=== PATIENT | female | born 1955 | race Caucasian/White ===

== ENCOUNTER 2019-08-03 12:11 | Outpatient (CLI) | payer OTHER, MEDICARE, SELFPAY ==
[2019-08-03] VITALS (8 sets, daily range): BP systolic 99–141; BP diastolic 48–97; PULSE 89–104; RESP 16–18; TEMP 36.1; O2SAT 96–98
--- NOTE | 2019-08-03 12:18 | DI.RAD.S_ITS ---
PROCEDURE: PAIN L/S TRANSFORAMINAL INJECT INDICATIONS: SPINAL STENOSIS FINDINGS: Fluoroscopic spot filming was performed to verify placement of spinal needles at the L5-S1 level(s), as labeled on the films. Appropriate location(s) of the needle tip(s) was confirmed by injection of iodinated contrast. Dictated by: Lavon Preciado M.D. on 08/03/2019 at 15:36 Approved by: Lavon Preciado M.D. on 08/03/2019 at 15:37
[2019-08-03] MEDS: MIDAZOLAM 5 MG/5 ML VIAL IV (13:36)
[2019-08-03] MEDS: fentaNYL 100 MCG/2 ML INJ 50 MCG IV (13:37)
[2019-08-03] MEDS: IOPAMIDOL 15 ML VIAL 3 ML INJ (13:43)
[2019-08-03] MEDS: BUPIVACAINE 0.25% (PF) VIAL 2 ML INJ (13:43)
[2019-08-03] MEDS: BETAMETHASONE 30 MG/5 ML MDV 6 MG INJ (13:43)
[2019-08-03] MEDS: DEXAMETHASONE 10 MG/ML VIAL 20 MG INJ (13:44)
--- NOTE | 2019-08-03 13:49 | PC.NURSE ---
ASSISTING PT OFF TABLE AND TRANSPORTING TO POST PROC AREA IN STABLE CONDITION. PASSING RN CARE OF PT OFF TO KRISTIAN Potter RN.
--- NOTE | 2019-08-03 13:53 | PM.PROC.1 ---
Procedures Date/Time Date of procedure: 08/03/19 Time of procedure: 13:54 General Procedure description: PREOP DIAGNOSIS 1. FORMAINAL STENOSIS WITH LE SYMPTOMS POST OP DIAGNOSIS 1. FORMAINAL STENOSIS WITH LE SYMPTOMS PROCEDURES 1. FLUOROSCOPICALLY GUIDED CONTRAST CONTROLLED TRANSFORAMINAL EPIDURAL STEROID INJECTION - Left L5/S1 PHYSICIAN: Bhaskar Jett DO INDICATIONS: Saritha is referred by Dr. Dalton for treatment of Foraminal Stenosis with Left LE Symptoms FINDINGS Foraminal Nerve Root Compression secondary to disc disease and facet hypertrophy DESCRIPTION OF PROCEDURE: Following review of allergy and review of potential side effects and complications, including, but not necessarily limited to, infection, allergic reaction, local tissue breakdown, stroke, temporary or permanent nerve injury, paralysis, and possible , the patient indicated that the patient understood and agreed to proceed. An informed consent document was signed by the patient, witnessed by a nurse, and placed in the patient's chart. Additionally, other treatment options including medications, modalities, and physical therapy were reviewed with the patient. After review of previous anaesthesic history and IV conscious sedation the patient was deemed safe to proceed with todays procedure with IV conscious sedation as ASA class II designation. Safety time-out was performed to confirm patient ID, procedure to be performed and site of procedure. IV sedation was accomplished with a combination of 3mg of Versed and 50mcg of Fentanyl was administered by the RN after DO order, titrated to patient comfort during the course of the procedure while the patient remained responsive to all verbal commands In the prone position following sterile prep and drape of the lumbar region, the Left L5/S1 posterior neuroforamen was identified fluoroscopically. The skin was anesthetized via a 25-gauge 1.5-inch needle with 1% lidocaine solution. At this point, a 22-gauge 5-inch spinal needle was atraumatically introduced and advanced under fluoroscopic guidance through the posterior Left L5/S1 neuroforamen to approximately the anterior aspect of the canal. Depth was confirmed on lateral view. Following negative aspiration, injection of approximately 1.5 cc of Isovue 200 under live fluoroscopy in the AP view confirmed excellent flow along the nerve root, into the epidural space without vascular or intrathecal uptake observed Radiological data, including multiple fluoroscopic views of the lumbosacral spine, reveal a spinal needle at the Left L5/S1 posterior neuroforamen. Subsequent views show flow of contrast material flowing superiorly and inferiorly along the nerve root confirming epidural flow. Subsequently, a test dose of 1.5 cc of 1% lidocaine solution was administered and patient was observed for two minutes for signs or symptoms of complications, including abdominal pain, shortness of breath, bilateral upper or lower extremity weakness, nausea and vomiting, prior to steroid injection. At this point, a total of 3cc or 20mg of dexamethasone and 6mg of betamethasone was injected without incident. The procedure tolerated the procedure well without signs or symptoms of complications prior to transfer to the recovery area continued monitoring without incident. The patient was then transferred to the recovery area where they were observed for an appropriate time after the injection. The patient reported a VAS score of 7 prior to the procedure and a post-procedure VAS of 0. Total Fluoroscopy Time: 20.9 seconds Total Conscious Sedation Time: 24min POST OP INSTRUCTIONS The patient was provided a Pain Log to continue to record their response to the target-specific procedure prior to follow-up visit with their referring physician. Additionally, specific post-injection care instructions and a contact number to our office were provided if concerns arise regarding possible complications associated with the procedure are suspected. Bhaskar Jett DO Complications: none
--- NOTE | 2019-08-03 14:34 | PC.NURSE ---
Post procedure note: Patient arrived for post procedure monitoring at 1357. VSS, O2 sat WNL. tolerating po without nausea. Pain level 0/10. Daughter at chairside. Denies any unusual numbness or tingling to lower extremtities. Discharge to home, w/c to car at 1423.
== END 2019-08-03 14:23 ==
LOC: RAD 12:18
PROVIDERS: Family Provider Internal Medicine; PCP Internal Medicine; Visit Provider Physical Medicine & Rehabilitation
DX: M48.07 Spinal stenosis, lumbosacral region (principal); M51.17 Intervertebral disc disorders with radiculopathy, lumbosacral region
CPT/HCPCS: 64483; 99152; J0702; J1100; J2250; J3010

== ENCOUNTER → 2020-03-29 10:43 | Outpatient (CLI) | payer OTHER, MEDICARE, SELFPAY ==
--- NOTE | 2020-03-29 10:44 | DI.RAD.S_ITS ---
PROCEDURE: XR LUMBAR SPINE MIN 4V INDICATIONS: Left-sided low back pain status post fall TECHNIQUE: 5 total views of the lumbar spine were acquired, including bilateral oblique views. COMPARISON: [facility], ERIC, XR PELVIS WITH LATERAL HIP, 05/22/2019, 15:56. [facility], ERIC, XR L-SPINE 2-3V, 11/28/2018, 13:47. [facility], ERIC, MRI L-SPINE W/O CONTRAST, 04/22/2019, 9:43. FINDINGS: Bones: 5 nonrib-bearing vertebrae are present. Minimal levoconvex lumbar scoliotic curvature is seen. There is a 1/2 anterolisthesis seen at the L5-S1 level. There are associated bilateral pars defects. No vertebral body compression fractures. No suspicious bony lesions. There is at least moderate disc space narrowing seen at L5-S1. Minimal to mild disc space narrowing is seen at L3-L4. Degenerative changes can be seen of the hips, with moderate to severe superior joint space narrowing on the left, with associated subchondral sclerosis and irregularity. Soft tissues: Overlying bowel gas pattern is normal. No suspicious soft tissue calcifications. Atherosclerotic calcification is noted. IMPRESSION: Grade 1/2 anterolisthesis at L5-S1, with associated bilateral pars defects and associated focal degenerative change. Focal moderate to severe left hip degenerative change seen. Dictated by: Dominic Clemons M.D. on 03/29/2020 at 11:01 Approved by: Dominic Clemons M.D. on 03/29/2020 at 11:03
== END ==
PROVIDERS: Family Provider Internal Medicine; PCP Internal Medicine; Referring Provider Physical Medicine & Rehabilitation; Visit Provider Physical Medicine & Rehabilitation
DX: M54.5 Low back pain (principal); M25.552 Pain in left hip; M16.12 Unilateral primary osteoarthritis, left hip; M43.17 Spondylolisthesis, lumbosacral region; M47.817 Spondylosis without myelopathy or radiculopathy, lumbosacral region
CPT/HCPCS: 72110

== ENCOUNTER → 2020-05-22 09:21 | Outpatient (CLI) | payer OTHER, MEDICARE, SELFPAY ==
[2020-05-23 07:23] LABS: COVID19 Sendout Not Detected (Not Detect)
== END ==
PROVIDERS: Family Provider Internal Medicine; PCP Internal Medicine; Visit Provider Physician Assistant
DX: Z11.59 Encounter for screening for other viral diseases (principal)
CPT/HCPCS: 87635

== ENCOUNTER → 2020-06-03 14:31 | Outpatient (CLI) | payer OTHER, MEDICARE, SELFPAY ==
[2020-06-05 01:31] LABS: COVID19 Sendout Not Detected (Not Detect)
== END ==
PROVIDERS: Family Provider Internal Medicine; PCP Internal Medicine; Visit Provider Nurse Practitioner
DX: Z11.59 Encounter for screening for other viral diseases (principal)
CPT/HCPCS: 87635

== ENCOUNTER 2020-06-06 10:17 | Outpatient (CLI) | payer OTHER, MEDICARE, SELFPAY ==
[2020-06-06] VITALS (8 sets, daily range): BP systolic 124–158; BP diastolic 73–93; PULSE 77–89; RESP 8–25; TEMP 36.7; O2SAT 96–99
--- NOTE | 2020-06-06 10:23 | DI.RAD.S_ITS ---
PROCEDURE: PAIN L/SI FACET INJ/BLK 1STL INDICATIONS: Left L4-5 L5-S1 facet COMPARISON: None. FINDINGS: Fluoroscopic spot filming was performed to verify placement of spinal needles at the L4-L5, L5-S1 level(s), as labeled on the films. Appropriate location(s) of the needle tip(s) was confirmed by injection of iodinated contrast. Dictated by: Lavon Preciado M.D. on 06/06/2020 at 12:36 Approved by: Lavon Preciado M.D. on 06/06/2020 at 12:37
[2020-06-06] MEDS: fentaNYL 100 MCG/2 ML INJ 50 MCG IV (11:28)
[2020-06-06] MEDS: MIDAZOLAM 5 MG/5 ML VIAL IV (11:28)
[2020-06-06] MEDS: IOPAMIDOL 15 ML VIAL 3 ML INJ (11:29)
[2020-06-06] MEDS: BETAMETHASONE 30 MG/5 ML MDV 12 MG INJ (11:29)
[2020-06-06] MEDS: BUPIVACAINE 0.5% (PF) VIAL 2 ML INJ (11:29)
[2020-06-06] MEDS: LIDOCAINE 1% 20 ML 10 ML INJ (11:29)
--- NOTE | 2020-06-06 11:36 | P.PCN_ITS ---
Date/Time/Diagnoses Date of procedure: 06/06/20 Time of procedure: 11:36 Pre-procedure diagnosis: 1. FACET ARTHROPATHY, 2. AXIAL LBP, 3. MULTILEVEL DDD Post-procedure diagnosis: same Procedure Notes Procedure: 1. FLUOROSCOPICALLY GUIDED CONTRAST CONTROLLED FACET JOINT INJECTIONS LEFT L4/5, L5/S1 Indications: Saritha is referred by for treatment of Axial LBP Physician: Bhaskar Jett Total Fluoroscopy time (seconds): 6 Total sedation minutes: 6 Complications: none Procedure in detail & Post-procedure care: FINDINGS Multilevel Facet Arthropathy with Clinically significant axial LBP DESCRIPTION OF PROCEDURE Fluoroscopically guided, contrast-controlled left L4/5, L5/S1 facet joint injections. Following review of allergy and review of potential side effects and complications, including, but not necessarily limited to, infection, allergic reaction, local tissue breakdown, stroke, temporary or permanent nerve injury, paralysis, and possible , the patient indicated that the patient understood and agreed to proceed. An informed consent document was signed by the patient, witnessed by a nurse, and placed in the patient's chart. Additionally, other treatment options including medications, modalities, and physical therapy were reviewed with the patient. After review of previous anaesthesic history and IV conscious sedation the patient was deemed safe to proceed with today?s procedure with IV conscious sedation as ASA class II designation. Safety time-out was performed to confirm patient ID, procedure to be performed and site of procedure. IV sedation was accomplished with a combination of 3mg of Versed and 50mcg of Fentanylwas administered by the RN after DO order, titrated to patient comfort during the course of the procedure while the patient remained responsive to all verbal commands. In the prone position, following sterile prep and drape of the lumbar region, the posterior aspect of the left L4/5, L5/S1 facet joints were identified fluoroscopically. The skin was anesthetized via a 25-gauge 1.5-inch needle with 1% lidocaine solution into the corresponding facet joints. At this point, a 22- gauge 3.5-inch spinal needle was atraumatically introduced and advanced under fluoroscopic guidance into the corresponding facet joints. Following negative aspiration, injections of approximately 0.2-cc of Isovue 200 confirmed i nterarticular placement without vascular uptake. Radiological data, including multiple fluoroscopic views of the lumbosacral spine, reveal a spinal needle at the left L4/5, L5/S1 facet joints. Subsequent views show flow of contrast material both superiorly and inferiorly within the joint space without vascular or intrathecal uptake. At this point, a total of 0.5 cc including a mixture of 0.25cc Marcaine and 0.25cc betamethasone was injected without complication into each of the corresponding facet joints. The procedure tolerated the procedure well without signs or symptoms of complic ations prior to transfer to the recovery area continued monitoring without incident. The patient was then transferred to the recovery area where they were observed for an appropriate period of time after the injection. The patient reported a VAS score of 7 prior to the procedure and a post-procedure VAS of 0. POST OP INSTRUCTIONS The patient was provided a Pain Log to continue to record their response to the target-specific procedure prior to follow-up visit with their referring physician. Additionally, specific post-injection care instructions and a contact number to our office were provided if concerns arise regarding possible complications associated with the procedure are suspected.
== END 2020-06-06 11:58 | disposition home or self-care (01) ==
LOC: RAD 10:23
PROVIDERS: Family Provider Internal Medicine; PCP Internal Medicine; Referring Provider Internal Medicine; Visit Provider Physical Medicine & Rehabilitation
DX: M47.817 Spondylosis without myelopathy or radiculopathy, lumbosacral region (principal); M47.816 Spondylosis without myelopathy or radiculopathy, lumbar region; M54.5 Low back pain; M51.36 Other intervertebral disc degeneration, lumbar region; M51.37 Other intervertebral disc degeneration, lumbosacral region
CPT/HCPCS: 64493; 64494; 99152; J0702; J2250; J3010

== ENCOUNTER → 2020-07-31 15:11 | Outpatient (CLI) | payer OTHER, MEDICARE, SELFPAY ==
[2020-08-02 09:51] LABS: COVID19 Sendout Not Detected (Not Detect)
== END ==
PROVIDERS: Family Provider Internal Medicine; PCP Internal Medicine; Visit Provider Physician Assistant
DX: Z11.59 Encounter for screening for other viral diseases (principal)
CPT/HCPCS: 87635

== ENCOUNTER 2020-08-03 14:51 | Outpatient (CLI) | payer OTHER, MEDICARE, SELFPAY ==
[2020-08-03] VITALS (7 sets, daily range): BP systolic 122–168; BP diastolic 72–113; PULSE 92–101; RESP 12–28; TEMP 36.1; O2SAT 95–98
--- NOTE | 2020-08-03 14:54 | DI.RAD.S_ITS ---
PROCEDURE: PAIN L INTERLAMINAR/CAUDAL INJ INDICATIONS: SPONDYLOSIS COMPARISON: [facility], XA, PAIN L/SI FACET INJ/BLK 1STL, 06/06/2020, 11:28. [facility], CR, XR LUMBAR SPINE MIN 4V, 03/29/2020, 10:36. FINDINGS: Fluoroscopic spot filming was performed to verify placement of spinal needles at the L5-S1 level(s), as labeled on the films. Appropriate location(s) of the needle tip(s) was confirmed by injection of iodinated contrast. IMPRESSION: Fluoroscopy for pain management. Dictated by: Kaykay Childers M.D. on 08/03/2020 at 16:56 Approved by: Kaykay Childers M.D. on 08/03/2020 at 16:57
[2020-08-03] MEDS: fentaNYL 100 MCG/2 ML INJ 50 MCG IV (15:58)
[2020-08-03] MEDS: MIDAZOLAM 5 MG/5 ML VIAL IV (15:58)
[2020-08-03] MEDS: IOPAMIDOL 15 ML VIAL 3 ML INJ (16:06)
[2020-08-03] MEDS: DEXAMETHASONE 10 MG/ML VIAL 20 MG INJ (16:06)
[2020-08-03] MEDS: BUPIVACAINE 0.25% (PF) VIAL 2 ML INJ (16:06)
[2020-08-03] MEDS: BETAMETHASONE 30 MG/5 ML MDV 6 MG INJ (16:07)
--- NOTE | 2020-08-03 16:15 | PM.PROC.IR.1 ---
Date/Time/Diagnoses Date of procedure: 08/03/20 Time of procedure: 16:15 Pre-procedure diagnosis: 1. HNP WITH RADICULAR FEATURES, 2. MULTILEVEL CENTRAL STENOSIS, Post-procedure diagnosis: same Procedure Notes Procedure: 1. FLUOROSCOPICALLY GUIDED CONTRAST CONTROLLED INTERLAMINAR EPIDURAL STEROID INJECTION - L5/S1 Indications: Saritha is referred by Dr. Dalton for treatment of Bilateral Foraminal Stenosis L>R LE symptoms. Physician: Bhaskar Jett Total Fluoroscopy time (seconds): 6 Total sedation minutes: 10 Complications: none Procedure in detail & Post-procedure care: FINDINGS Multilevel Central Spinal Stenosis with Nerve Root Compression DESCRIPTION OF PROCEDURE Fluoroscopically guided, contrast-controlled L5/S1 translaminar epidural steroid injection. Following review of allergy and review of potential side effects and complications, including, but not necessarily limited to, infection, allergic reaction, local tissue breakdown, temporary as well as permanent nerve injury, paralysis, stroke and possible , the patient indicated that the patient understood and agreed to proceed. An informed consent document was signed by the patient, witnessed by a nurse, and placed in the patient's chart. Additionally, other treatment options including modalities, medications, and physical therapy were reviewed with the patient. After review of previous anaesthesic history and IV conscious sedation the patient was deemed safe to proceed with today?s procedure with IV conscious sedation as ASA class II designation. Safety time-out was performed to confirm patient ID, procedure to be performed and site of procedure. IV sedation was accomplished with a combination of 2mg of Versed and 50mcg of Fentanyl administered by the RN after DO order, titrated to patient comfort during the course of the procedure while the patient remained responsive to all verbal commands. In the prone position, following sterile prep and drape of the lumbar region, the L5/S1 translaminar space was identified fluoroscopically. The skin was anesthetized via a 25-gauge, 1.5-inch needle with 1% lidocaine solution. At this point, a 22-gauge short bevel spinal needle was atraumatically introduced and advanced under fluoroscopic guidance into the region of the L5/S1 translaminar space. Depth was confirmed on lateral view. Radiological data, including multiple fluoroscopic views of the lumbar spine, reveal a spinal needle at the L5/S1 translaminar space. Lateral views then show placement of the needle in the epidural space. Subsequent views show contrast material flowing superiorly and inferiorly in the epidural space. No vascular or intrathecal uptake is observed. At this point, using loss of resistance technique with saline and air, the epidural space was entered. This was confirmed following negative aspiration with injection of approximately 1.5cc of Isovue 200, showing excellent epidural flow without vascular or intrathecal uptake. At this point, 1 cc of 1% lidocaine solution combined with 3cc or 20mg of dexamethasone and 6mg of betamethasone was injected without incident. The patent tolerated the procedure without signs of symptoms of complications prior to transfer to the recovery area for further monitoring. The patient was then transferred to the recovery area where they were observed for an appropriate period of time after the injection. The patient reported a VAS score of 6 prior to the procedure and a post-procedure VAS of 0. POST OP INSTRUCTIONS The patient was provided a Pain Log to continue to record their response to the target-specific procedure prior to follow-up visit with their referring physician. Additionally, specific post-injection care instructions and a contact number to our office were provided if concerns arise regarding possible complications associated with the procedure are suspected.
== END 2020-08-03 16:42 | disposition home or self-care (01) ==
LOC: RAD 14:53
PROVIDERS: Family Provider Internal Medicine; PCP Internal Medicine; Referring Provider Physical Medicine & Rehabilitation; Visit Provider Physical Medicine & Rehabilitation
DX: M51.17 Intervertebral disc disorders with radiculopathy, lumbosacral region (principal); M48.061 Spinal stenosis, lumbar region without neurogenic claudication
CPT/HCPCS: 62323; 99152; J0702; J1100; J2250; J3010

== ENCOUNTER → 2020-09-01 13:34 | Outpatient (CLI) | payer OTHER, MEDICARE, SELFPAY ==
[2020-09-01 13:57] LABS: Bacteria Urine None Seen; RBC Urine None Seen (0-5/HPF)
[2020-09-01 14:16] LABS: Appearance Urine UA CLEAR; Bilirubin Urine UA NEGATIVE (NEGATIVE); Color Urine UA YELLOW; Glucose Urine UA NEGATIVE (Negative); Leukocyte Esterase Urine UA NEGATIVE (NEGATIVE); Nitrite Urine UA NEGATIVE (Negative); Protein Urine UA NEGATIVE (Negative); Urobilinogen Urine UA 0.2 E.U./dL (0.2)
[2020-09-01 14:24] LABS: Add Manual Diff / Slide Review NO; Basophils Absolute Auto 0 /uL (0-100); Basophils Percent Auto 0.4 % (0-2); Eosinophils Absolute Auto 200 /uL (0-450); Eosinophils Percent Auto 1.6 % (2-4); Hematocrit 43.8 % (36-46); Hemoglobin 14.4 g/dL (12.0-16.0); Lymphocytes Absolute Auto 2600 /uL (1100-4500); Lymphocytes Percent Auto 24.5 % (25-40); Mean Corpuscular HGB Conc 32.9 % (30-36); Mean Corpuscular Hemoglobin 30.4 PG (26-34); Mean Corpuscular Volume 92.5 fL (80-100); Monocytes Absolute Auto 900 /uL (0-900); Monocytes Percent Auto 8.2 % (3-14); Neutrophils Absolute Auto 7000 /uL (1500-7000); Neutrophils Percent Auto 65.3 % (50-75); Platelet Count 304 X10^3/uL (150-400); Red Blood Cell Count 4.73 X10^6/uL (4.0-5.2); Red Cell Distribution Width 14.1 % (11.6-14.8); White Blood Cell Count 10.7 X10^3/uL (4.5-11.0)
[2020-09-01 14:26] LABS: Culture Indicated Urine Cult Not Indicated
[2020-09-01 14:37] LABS: Blood Urea Nitrogen 20 mg/dL (7-17); Calcium 9.9 mg/dL (8.4-10.2); Carbon Dioxide 27 mmol/L (22-32); Chloride 104 mmol/L (98-107); Estimated Glomerular Filt Rate > 60.0 mL/min (>60); Glucose 99 mg/dL (80-110); HEMOLYSIS < 15 (0-50); Potassium 5.2 mmol/L (3.4-5.1); Sodium 137 mmol/L (137-145)
[2020-09-01 14:41] LABS: Ketones Urine UA NEGATIVE (NEGATIVE); Occult Blood Urine UA Negative (Negative)
[2020-09-01 14:42] LABS: Amorphous Sediment Urine 1+; Mucus Urine 3+ (Negative)
[2020-09-01 14:43] LABS: WBC Urine 5-10/HPF (0-5/HPF)
== END ==
PROVIDERS: Family Provider Internal Medicine; PCP Internal Medicine; Referring Provider Orthopaedic Surgery
DX: Z01.812 Encounter for preprocedural laboratory examination (principal); Z01.818 Encounter for other preprocedural examination
CPT/HCPCS: 36415; 80048; 81001; 85025; 93005

== ENCOUNTER → 2020-09-25 13:19 | Outpatient (CLI) | payer OTHER, MEDICARE, SELFPAY ==
[2020-09-25 14:03] LABS: COVID19 -Nasal RAPID Negative (Negative)
== END ==
PROVIDERS: Family Provider Internal Medicine; PCP Internal Medicine; Visit Provider Physician Assistant
DX: Z01.812 Encounter for preprocedural laboratory examination (principal); Z20.828 Contact with and (suspected) exposure to other viral communicable diseases
CPT/HCPCS: 87635; C9803

== ENCOUNTER 2020-09-27 07:24 | Day surgery (SDC) | payer OTHER, MEDICARE, SELFPAY ==
[2020-09-20 13:54] VITALS: BMI 31.2
[2020-09-27] VITALS (16 sets, daily range): BP systolic 103–149; BP diastolic 51–84; PULSE 67–94; RESP 10–18; TEMP 35.6–36.4; O2SAT 92–100; BMI 31.2
--- NOTE | 2020-09-27 06:00 | DI.RAD.S_ITS ---
PROCEDURE: XR PELVIS 1-2V INDICATIONS: ASHLEY TECHNIQUE: 2 view(s) of the pelvis acquired. COMPARISON: [facility], CR, XR PELVIS WITH LATERAL HIP LEFT, 08/17/2020, 13:49. [facility], CR, XR PELVIS 1 OR 2VW, 09/02/2016, 13:13. FINDINGS: Bones: No fractures or dislocations. No suspicious bony lesions. Expected postoperative appearance after left total hip arthroplasty, showing no evidence of device loosening or disruption Soft tissues: Visualized bowel gas pattern is normal. No suspicious soft tissue calcifications. IMPRESSION: Normal postoperative alignment after left total hip arthroplasty. Dictated by: Garth Mcneill M.D. on 09/27/2020 at 10:56 Approved by: Garth Mcneill M.D. on 09/27/2020 at 10:57
[2020-09-27] MEDS: ACETAMINOPHEN 325 MG TABLET 975 MG PO (07:51)
[2020-09-27] MEDS: MELOXICAM 7.5 MG TABLET 15 MG PO (07:51)
[2020-09-27] MEDS: ALBUTEROL 2.5 MG/3 ML NEB (ADULT) INH (08:12)
--- NOTE | 2020-09-27 08:12 | PM.PREOP ---
Pre-operative Note COVID-19 COVID-19 status: Negative Result date/Date tested (Pos, Neg/Pending): 09/25/20 Interval Note History & Physical reviewed/Exam performed by Physician: Yes Changes to H&P: No
[2020-09-27] MEDS: CEFAZOLIN 2 GM/100 ML FROZ.PIGGY IV ×2 (09:04→17:44)
--- NOTE | 2020-09-27 09:27 | SUR.OPER ---
Lateral on padded OR bed. Gel axillary roll. Arms secured on padded armboard with pillow supporting top arm. Padded hip positioner braces x4 - anterior and posterior chest and pelvis. Additional gel pad used anterior pelvis. Gel pad under bottom leg from knee to foot and secured with tape over sheet.
[2020-09-27] MEDS: TRANEXAMIC ACID 1,000 MG VIAL 2000 MG INJ ×2 (09:33→10:11)
[2020-09-27] MEDS: MORPHINE 4 MG/ML INJ INJ (09:34)
[2020-09-27] MEDS: ROPIVACAINE 0.5% PF 5 MG/ML 20ML VIAL 60 ML INJ (09:34)
[2020-09-27] MEDS: KETOROLAC 30 MG/ML VIAL IV (09:34)
--- NOTE | 2020-09-27 10:45 | PM.OP.1 ---
Operative Date/Time/Diagnoses Date of procedure: 09/27/20 Time of procedure: 10:46 Pre-op diagnosis: Left hip degenerative joint disease Post-op diagnosis: same Procedure & Clinicians Procedure: Left total hip arthroplasty (CPT code 77402 with personal injury legal assistant) Same procedure as scheduled: Yes Indications: Patient is an 65-year-old female with severe left hip DJD. The patient has pain with activities and at rest, limited ambulation and activity tolerance, difficulties with ADLs, and failure of conservative treatment. We have discussed the nature of condition, treatment options, risks and benefits, and patient elects to proceed with total hip arthroplasty and gives informed consent. Surgeon: Jaswinder Gray 5Th Grade Teacher: Maurilio Kebede Anesthesia Type: General and Spinal Operative Notes Closure Type: primary Specimen(s): none sent Prosthetic devices, grafts, tissues, transplants, or devices: Acetabulum: Negron [employer] Nephew R3 acetabular component size 52 mm Femoral component: Negr[employer]hew Anthology stem size 6 with standard offset Femoral head: 36 mm + 0 cobalt chrome Estimated Blood Loss (mL): 100 Blood products transfused: none Procedure in detail: After satisfaction induction of anesthetic, and administration of IV antibiotics, the patient was positioned in the lateral decubitus position with all bony prominences well padded and pelvic position secured using a hip fiber optic central office installer positioning device. Left hip and lower extremity prepped and draped in the usual sterile fashion, 1st dose of intravenous tranexamic acid was administered, then a longitudinal incision was created centered over the greater trochanter and carried sharply through the skin and subcutaneous tissues down to the fascia patsy which was divided longitudinally and retracted with a Charnley retractor. External rotators visualize, cut, tagged, and retracted posteriorly, then the capsule was cut in a T-type fashion with the corners tagged and retracted. Hip was dislocated and femoral neck cut made according to preoperative templating. Acetabular retractors then placed, and the acetabular labrum and osteophytes were excised. The acetabulum was then sequentially reamed to 51 mm with an excellent circumferential ream and fit with the trial. The trial component was removed and a permanent size 52 mm Negron and Nephew R3 acetabular component was selected, positioned, and impacted with satisfactory position and fixation achieved. Permanent liner was then inserted with the elevated lip directed posteriorly. Soft tissue then removed off the lateral femoral neck in the lateral neck was entered using a box osteotome. T-handled reamers placed down the canal followed by sequential broaching to 6 with the final broach left in place for trial reduction which demonstrated excellent leg length, range of motion, and stability characteristics with a 36 mm +0 trial ball. The trial and broach were removed, and a permanent size 6 Negron [employer] Nephew Anthology stem was selected and inserted with excellent position and fixation achieved. Another trial reduction yielded the above characteristics so the trial ball was exchanged for a permanent 36 mm +0 cobalt chrome ball. The hip was irrigated and reduced and excellent leg length range of motion and stability characteristics were achieved and maintained. Periarticular tissues were infiltrated with ropivacaine, morphine, and Toradol. The hip was copiously irrigated, and the capsule repaired with #2 Ethibond, and the piriformis was repaired back to the greater trochanter with the same. Fascia patsy closed with interrupted #1 Ethibond sutures, and the subcutaneous tissues were closed in 2 layers of 0 Vicryl and 2 0 Vicryl. Skin was closed with ZipLine skin closure and sterile dressings applied. Second dose of tranexamic acid was administered intravenously, and the anesthetic was terminated. Complications: none Post-operative Condition: stable Disposition: PACU Plan for aftercare: Patient will be admitted to the acute care [facility], and anticipate discharge on postop day 1 with follow-up in office in 10-14 days. Outpatient physical therapy will be arranged and patient will continue to observe posterior hip precautions. Patient will continue use of postoperative aspirin for DVT prophylaxis postop.
[2020-09-27] MEDS: LACTATED RINGERS 1,000 ML 125 ML IV ×2 (12:22→21:18)
--- NOTE | 2020-09-27 12:37 | PC.NURSE ---
Pt to rm 204 via bed from PACU. Pt awake alert and oriented x 3, denies pain, nausea, or shortness of breath. Pt oriented to room, call light, bed controls, and tv controls. Pt is aware that the bed alarm is on and she must call for assistance as needed and not get up without help. Admission has been completed and Pt is eating lunch.
[2020-09-27] MEDS: ACETAMINOPHEN 325 MG TABLET 650 MG PO ×2 (14:21→21:19)
--- NOTE | 2020-09-27 15:50 | PT.IIE ---
Current Diagnoses Unilateral primary osteoarthritis, left hip (09/27/20) Surgery Performed Operation Date: 09/27/20 08:45 Actual Procedures p Total Hip Arthroplasty(Left) - Jaswinder Gray MD Surgical History (Last Updated 09/20/20 @ 14:18 by Unique Romeo RN) History of nasal surgery History of surgery Hx of dilation and curettage Hx of tubal ligation Medical History (Last Updated 09/20/20 @ 14:49 by Unique Romeo RN) Anxiety Asthma COPD (chronic obstructive pulmonary disease) Degenerative joint disease (DJD) of hip Fibromyalgia Heartburn Neuropathy Postnasal drip PTSD (post-traumatic stress disorder) RLS (restless legs syndrome) Spondylolisthesis at L5-S1 level Physical Therapy Inpatient Evaluation/Re-Eval M1 PT/OT-IP Prior Functional Status Start: 09/27/20 13:53 Freq: NEEDED Status: Active Protocol: Document 09/27/20 15:50 DE (Rec: 09/27/20 16:30 DE [id number]) Medical Review Prior Functional Status Medical History Reviewed Yes Communication WNL. No deficits noted. Able to make needs known. Mobility and Gait IND for all mobility and amb without AD at baseline. Pt was unable to amb more than 3 blocks. Activities of Daily Living and IADL's IND for all ADLs and IADLs at baseline. Social History Household Members spouse Living Arrangements House Number of Floors (Floors) Two Floors Number of Stairs To Enter/Railing? 5 MALINI with B wide railing through front foor. 4 MALINI with R railing going up through back door. Pt prefers the back entrance. 3 steps inside to kitchen with R railing going up. There are more steps to go upstairs but pt can stay on main floor. Home Environment Standard Height Toilet,Tub/ Shower Home Equipment Front Wheel Walker,Straight Cane,Raised Toilet Seat w/ Armrests,Shower Seat with Backrest,Grab Bars In Shower Employment Status Retired Additional Social History Comment Pt lives with , who works full-time. One of her daughter will stay with her and Friday. Another daughter will stay with her next Friday and Friday. M2 PT-IP Current Condition Start: 09/27/20 13:53 Freq: NEEDED Status: Active Protocol: Document 09/27/20 15:50 DE (Rec: 09/27/20 16:30 DE [id number]) Physical Therapy Current Condition Current Condition Evaluation Date 09/27/20 Treatment Diagnosis L ASHLEY; Difficulty in walking Onset Date 09/27/20 Precautions Posterior Hip Precautions No Hip Flexion > 90 degrees,No Hip Internal Rotation,No Hip Adduction Weight Bearing Status Weight Bearing Status Weight Bear as Tolerated M3 PT-IP Subjective Start: 09/27/20 13:53 Freq: NEEDED Status: Active Protocol: Document 09/27/20 15:50 DE (Rec: 09/27/20 16:30 DE [id number]) Subjective Physical Therapy Visit Type Type Initial Evaluation Visit Start Time 14:14 Visit Stop Time 15:00 Total Visit Minutes 46 Notes SPT Paco led session under direct supervision of PT Baljit. Number of PHOTOGRAPHY SPOTTER Visits 0 Physical Therapy Visit Comments Patient Comments Pt is agreeable to do PT. Therapy Pain Assessment Pain When Pain Assessed During Weight Bearing Pain Present Pain Present Pain Reported Location Left Hip Intensity 3 Scale Used Numeric (0 - 10) Description Aching Pain Behaviors Calling Out Pain Management Techniques Timing of Activity with Medications M4 PT-IP Mobility and Gait Start: 09/27/20 13:53 Freq: NEEDED Status: Active Protocol: Document 09/27/20 15:50 DE (Rec: 09/27/20 16:30 DE [id number]) PT-Bed Mobility Assessment Supine to Sit Supine to Sit Standby Assistance,Head of Bed Elevated Scooting Scooting to Edge of Bed Standby Assistance PT-Transfer Assessment Sit to and From Stand Sit to and from Stand Contact Guard Assistance,Use of Upper Extremities Equipment Transfer Assistive Device Gait Belt,Front Wheeled Walker Orthotic/Prosthetic Devices or Brace: No Transfers Transfer Destination Chair Transfer Technique Amb with FWW Transfer Ability Level of Assist Contact Guard Assistance,Use of Upper Extremities Comments Mobility Comments Pt was inclined in bed upon arrival. Pt completed supine to sit at L EOB with elevated HOB, SBA, and cues to not bend over. BP on EOB was 112/67. Pt then performed sit to stand with FWW CGA. Pt was able to tolerate WB on LLE well. Pt then amb ~120 ft in the hallway and back to the room with FWW CGA. Pt demonstrated step-though gait pattern with decreased stride length, decreased feet clearance, and decreased gait speed. Cues were provided to take smaller steps when turning in order to prevent hip internal rotation . Pt tolerated walking well. Pt amb back to the room and sat down in the chair with FWW CGA. Pt does has mild difficulty recalling her post op precautions and she was somewhat anxious during the session. Call light placed within reach. Gait Assessment Gait Gait Assistance Required: Contact Guard Assist Distance (Feet) 120 Able to Maintain Weight Bearing Status Yes During Gait Assistive Devices Assistive Device Gait Belt,Front Wheeled Walker Orthotic/Prosthetic Devices or Brace: No Gait Deviations General Gait Pattern Antalgic,Decreased Stride Length,Decreased Feet Clearance Factors Limiting Gait Function Factors Limiting Gait Function Decreased Activity Tolerance, Decreased Sensation,Decreased Strength,Limited Range of Motion,Pain,Poor Balance,Poor Safety Awareness Comments Gait Comments See mobility comments. Stair Climbing Assessment Comments Stair Climbing Comments Not assessed. PT-Balance Assessment Sitting Balance and Reactions Static Sitting Balance Ability Normal Dynamic Sitting Balance Ability Normal Standing Balance and Reactions Static Standing Balance Ability Good Dynamic Standing Balance Ability Good Device Used FWW M5 PT-IP Objective Assessments Start: 09/27/20 13:53 Freq: NEEDED Status: Active Protocol: Document 09/27/20 15:50 DE (Rec: 09/27/20 16:30 DE [id number]) Orientation Orientation/Cognition Level of Alertness Alert Orientation Name,Age,Birthday,Month,Date, Year,Day of Week,Place, Situation Language Function Ability No Deficits Noted Safety Awareness Understands Safety Issues Memory Description No Deficits Noted Comments Pt demonstrated some forgetfulness throughout session. Gross Range of Motion Lower Extremity ROM Assessment Left Impaired Strength Lower Extremity Strength Assessment Left Impaired Comments Strength Comments R hip and knee 5/5 grossly L - did not test hip, knee 4/5 grossly Coordination Assessment Gross Coordination Gross Coordination WNL Sensation Assessment Sensation Gross Sensation Right LE Impaired,Left LE Impaired Light Touch Impaired Comments Sensation Comments Pt is able to feel light touch but reports she has peripheral neuropathy. Muscle Tone Muscle Tone WNL Yes M6 PT-IP Treatment Start: 09/27/20 13:53 Freq: NEEDED Status: Active Protocol: Document 09/27/20 15:50 DE (Rec: 09/27/20 16:30 DE [id number]) Physical Therapy Treatment Education Education Provided Precautions,Weight Bearing Status,Post-Op Packet,Safety M7 PT-IP Assessment and Plan Start: 09/27/20 13:53 Freq: NEEDED Status: Active Protocol: Document 09/27/20 15:50 DE (Rec: 09/27/20 16:30 DE [id number]) PT Summary Assessment and Plan Potential Rehabilitation Potential Good Status of Condition at Evaluation Evolving Summary Impairments Pain,ROM,Strength,Balance,Bed Mobility,Transfers,Gait, Activity Tolerance Assessment Summary Saritha is a 65 yo female POD0 s/p L ASHLEY. At baseline, pt was IND for all mobility, amb, and ADLs without AD. Pt was unable to amb more than 3 blocks d/t increased pain. On evaluation, pt requires CGA- SBA for all mobility, transfers, and amb with use of FWW. Pt amb ~120 ft with FWW CGA. Pt is not safe yet to d/c home at this time. Pt will need to improve activity tolerance and perform 4 MALINI with R railing going up. PT anticipates pt will be safe to d/c home with assistance once medically cleared. Pt will benefit from outpatient PT to improve hip ROM and strength. Goals Bed Mobility Goal Standby Assistance Transfer Goal Standby Assistance Gait Goal Standby Assistance Gait Distance 200 Other Goals Pt will perform 4 steps with R railing going up and SBA. Days to Meet Goals 3 Frequency of Treatment Frequency Of Treatment Twice a Day Treatment Plan Physical Therapy Treatment Plan Bed Mobility Training,Transfer Training,Gait Training, Therapeutic Exercise,Balance Retraining,Post Op Education, Discharge Planning,Hot or Cold Pack,Neuromuscular Re-ed Other Recommendations and Next Treatment cont mobility as tiera Focus 4 steps with R railing Recommendations To Nursing Amount of Assist Needed 1 Person Assist Discharge Recommendations PT Discharge Recommendations Home with Assistance, Outpatient PT Transportation Needs at Discharge Private Vehicle This session was led by SPT Paco Yang and supervised by me PT Carlie Villatoro. I personally reviewed and approved this eval noted as well.
[2020-09-27] MEDS: hydrOXYzine pamoate 25 MG CAPSULE PO (17:44)
[2020-09-27] MEDS: ASPIRIN EC 81 MG TABLET PO (21:18)
[2020-09-27] MEDS: DOCUSATE 100 MG CAPSULE PO (21:19)
[2020-09-27] MEDS: FLUTICASONE/SALMETEROL 500/50 60 PUFF DISKUS INH (21:23)
[2020-09-27] MEDS: HYDROCODONE/ACET 5/325 TABLET 1 TAB PO (22:45)
[2020-09-28] MEDS: hydrOXYzine pamoate 25 MG CAPSULE PO (03:19)
[2020-09-28 03:32] VITALS: BP 112/65; PULSE 79; RESP 16; TEMP 36.2; O2SAT 93
[2020-09-28] MEDS: LACTATED RINGERS 1,000 ML 125 ML IV (05:23)
[2020-09-28] MEDS: OXYCODONE IR 5 MG TABLET PO ×2 (05:28→09:41)
[2020-09-28 06:04] LABS: Hematocrit 34.1 % (36-46)
[2020-09-28] MEDS: TIOTROPIUM BROMIDE 18 MCG INHALER INH (07:31)
[2020-09-28 07:33] VITALS: PULSE 88; RESP 18; O2SAT 97
[2020-09-28] MEDS: FLUTICASONE/SALMETEROL 500/50 60 PUFF DISKUS INH (07:36)
[2020-09-28 08:00] VITALS: BP 140/84; PULSE 83; RESP 16; TEMP 36.4; O2SAT 94
[2020-09-28] MEDS: DOCUSATE 100 MG CAPSULE PO (08:35)
[2020-09-28] MEDS: ASPIRIN EC 81 MG TABLET PO (08:35)
[2020-09-28] MEDS: ACETAMINOPHEN 325 MG TABLET 650 MG PO (08:35)
--- NOTE | 2020-09-28 10:32 | PM.PN.1 ---
Subjective Subjective Date Patient Seen: 09/28/20 Interval history: Patient is POD#1 s/p left posterior ASHLEY with Dr. Gray. Pain has been well controlled. She has mobilized with PT. No nausea or vomiting. Tolerating a diet. Voiding appropriately. No complaints. Exam Vital Signs (past 8 hours): - 09/28/20 03:32 09/28/20 07:33 09/28/20 08:00 Temperature 97.1 F L 97.6 F Pulse Rate 79 88 83 Respiratory Rate 16 18 16 Blood Pressure 112/65 140/84 Pulse Oximetry 93 97 94 Oxygen Delivery Method Room Air Oxygen Flow Rate 0 Narrative Exam Narrative: 65 year old female resting in bed alert and oriented in no acute distress. Dressing in place is clean and dry, peeling at edges. Active dorsiflexion and plantar flexion of the ankle. Calves are soft nontender. Palpable pedal pulse. Objective Labs Result Diagrams: 09/28/20 05:35 Labs: Laboratory Results - last 24 hr 09/28/20 05:35 Hgb 11.0 L Hct 34.1 L PFSH Medical History Anxiety Asthma COPD (chronic obstructive pulmonary disease) Degenerative joint disease (DJD) of hip Fibromyalgia Heartburn Neuropathy Postnasal drip PTSD (post-traumatic stress disorder) RLS (restless legs syndrome) Spondylolisthesis at L5-S1 level Surgical History (Updated 09/20/20 @ 14:18 by Unique Romeo RN) History of nasal surgery History of surgery Hx of dilation and curettage Hx of tubal ligation Family History Brother Leukemia Mother Heart disease Father Heart disease Brother Throat cancer Social History (Updated 10/07/19 @ 13:45 by Christin Schmitz) household members: spouse Smoking Status: Current every day smoker alcohol intake: former Assessment & Plan Assessment & Plan narrative: -Postop right ASHLEY. Doing well. -Mobilize with PT today. Posterior hip precautions. -Continue ASA 81mg BID for DVT prophylaxis. Prescriptions for oxycodone and vistaril provided. -Discharge to home later today. Daughter and available as caretakers. -Follow up as scheduled in 2 weeks. Quality VTE Deep Vein Thrombosis/Pulmonary Embolism Present on Admission: No
--- NOTE | 2020-09-28 10:40 | PT.IPTN ---
Current Diagnoses Unilateral primary osteoarthritis, left hip (09/27/20) Surgery Performed Operation Date: 09/27/20 08:45 Actual Procedures p Total Hip Arthroplasty(Left) - Jaswinder Gray MD Physical Therapy Treatment Note M2 PT-IP Current Condition Start: 09/27/20 13:53 Freq: NEEDED Status: Discharge Protocol: Document 09/28/20 10:40 DLM (Rec: 09/28/20 11:52 DLM [id number]) Physical Therapy Current Condition Current Condition Evaluation Date 09/27/20 Treatment Diagnosis L ASHLEY; Difficulty in walking Onset Date 09/27/20 Precautions Posterior Hip Precautions No Hip Flexion > 90 degrees,No Hip Internal Rotation,No Hip Adduction Weight Bearing Status Weight Bearing Status Weight Bear as Tolerated M3 PT-IP Subjective Start: 09/27/20 13:53 Freq: NEEDED Status: Discharge Protocol: Document 09/28/20 10:40 DLM (Rec: 09/28/20 11:52 DLM [id number]) Subjective Physical Therapy Visit Type Type Treatment Note Visit Start Time 10:00 Visit Stop Time 10:40 Total Visit Minutes 40 Number of FOREST PATHOLOGY TEACHER Visits 0 Physical Therapy Visit Comments Patient Comments she is worried about being able to follow her precautions Patient Goals go home with Spouse Therapy Pain Assessment Pain When Pain Assessed After Treatment Pain Present Pain Present Pain Reported Location Left Hip Intensity 7 Scale Used Numeric (0 - 10) Description Aching Pain Behaviors Guarding Pain Management Techniques Re-positioning,Timing of Activity with Medications M4 PT-IP Mobility and Gait Start: 09/27/20 13:53 Freq: NEEDED Status: Discharge Protocol: Document 09/28/20 10:40 DLM (Rec: 09/28/20 11:52 DLM [id number]) PT-Bed Mobility Assessment Supine to Sit Supine to Sit Standby Assistance Sit to Supine Sit to Supine Standby Assistance Scooting Scooting to Edge of Bed Standby Assistance Scooting Up and Down in Bed Independent PT-Transfer Assessment Sit to and From Stand Sit to and from Stand Standby Assistance,Use of Upper Extremities Equipment Transfer Assistive Device Gait Belt,Front Wheeled Walker Transfers Transfer Destination Bed,Chair,Toilet Transfer Technique Stand Step Pivot Transfer Ability Level of Assist Standby Assistance,Use of Upper Extremities Comments Mobility Comments she needs frequent verbal and physical cuing to use her hip precautions during functional mobility, she especially has difficulty with limiting forward bend during sit-stand and scooting in sitting, during transfers she needs reminders to avoid twisting left LE into IR Gait Assessment Gait Gait Assistance Required: Standby Assistance Distance (Feet) 300 Able to Maintain Weight Bearing Status Yes During Gait Assistive Devices Assistive Device Gait Belt,Front Wheeled Walker Gait Deviations General Gait Pattern Antalgic Factors Limiting Gait Function Factors Limiting Gait Function Decreased Activity Tolerance, Pain,Poor Safety Awareness Comments Gait Comments she needs verbal reminders to slow down, adjusted home FWW and cane Stair Climbing Assessment Evaluation Level of Assist On Stairs Standby Assistance Devices Stair Climbing Assistive Devices Straight Cane,Right Railing Technique/Endurance Stair Climbing Direction Ascend and Descend Stair Climbing Technique Step to Step Number of Steps Climbed 3 Stair Climbing Set # Repetitions (reps) 1 Comments Stair Climbing Comments needs verbal cuing for sequencing PT-Balance Assessment Sitting Balance and Reactions Static Sitting Balance Ability Normal Dynamic Sitting Balance Ability Normal Standing Balance and Reactions Static Standing Balance Ability Good Dynamic Standing Balance Ability Good Device Used fWW M5 PT-IP Objective Assessments Start: 09/27/20 13:53 Freq: NEEDED Status: Discharge Protocol: Document 09/27/20 15:50 DE (Rec: 09/27/20 16:30 DE [id number]) Orientation Orientation/Cognition Level of Alertness Alert Orientation Name,Age,Birthday,Month,Date, Year,Day of Week,Place, Situation Language Function Ability No Deficits Noted Safety Awareness Understands Safety Issues Memory Description No Deficits Noted Comments Pt demonstrated some forgetfulness throughout session. Gross Range of Motion Lower Extremity ROM Assessment Left Impaired Strength Lower Extremity Strength Assessment Left Impaired Comments Strength Comments R hip and knee 5/5 grossly L - did not test hip, knee 4/5 grossly Coordination Assessment Gross Coordination Gross Coordination WNL Sensation Assessment Sensation Gross Sensation Right LE Impaired,Left LE Impaired Light Touch Impaired Comments Sensation Comments Pt is able to feel light touch but reports she has peripheral neuropathy. Muscle Tone Muscle Tone WNL Yes M6 PT-IP Treatment Start: 09/27/20 13:53 Freq: NEEDED Status: Discharge Protocol: Document 09/28/20 10:40 DLM (Rec: 09/28/20 11:52 DLM [id number]) Physical Therapy Treatment Exercises Exercises Ankle Pumps,Gluteal Sets,Quad Sets,Heel Slides Education Education Provided Precautions,Weight Bearing Status,Post-Op Packet,Safety Equipment Issued Equipment Type and Company she has a home FWW and cane that is in her hospital room Other Treatments Other Treatment Performed her Spouse arrived at end of visit and reviewed hip precaution information with him M7 PT-IP Assessment and Plan Start: 09/27/20 13:53 Freq: NEEDED Status: Discharge Protocol: Document 09/28/20 10:40 DLM (Rec: 09/28/20 11:52 DLM [id number]) PT Summary Assessment and Plan Summary Impairments Pain,ROM,Strength,Balance,Bed Mobility,Transfers,Gait, Activity Tolerance Progress Towards Goals Progressing Toward Goals,Safe For Discharge Assessment Summary She is progressing well. She has a supportive Spouse and Daughters to help at home. She will need family to help reinforce her hip precautions during functional mobility. She appears safe to discharge with family support. She has home equipment. Goals Bed Mobility Goal Standby Assistance Transfer Goal Standby Assistance Gait Goal Standby Assistance Gait Distance 200 Other Goals Pt will perform 4 steps with R railing going up and SBA. Days to Meet Goals 3 Frequency of Treatment Frequency Of Treatment Twice a Day Treatment Plan Physical Therapy Treatment Plan Bed Mobility Training,Transfer Training,Gait Training, Therapeutic Exercise,Balance Retraining,Post Op Education, Discharge Planning,Hot or Cold Pack,Neuromuscular Re-ed Recommendations To Nursing Amount of Assist Needed 1 Person Assist Discharge Recommendations PT Discharge Recommendations Home with Assistance, Outpatient PT Transportation Needs at Discharge Private Vehicle
--- NOTE | 2020-09-28 11:04 | PC.NURSE ---
Pt worked with PT on stairs, cleared for d/c. Pt's present in room, discharge instructions given to pt and , discussed- follow-up appts, medications and safety, s/s stroke, incision dressing care, posterior hip replacement precautions. Pt dressed with assistance of DISTRIBUTOR SALES CONSULTANT. Left via w/c with , will all belongings, in POV.
--- NOTE | 2020-09-28 11:15 | CM.DANOTE ---
Discharge Planning/Care Management DCP: assessment: case received, EMR reviewed. Discussed in Team Rounds. PT noted that pt needed some work on step training today before she would be ready for d/c. Went to room now to meet with pt and follow for any d/c needs. She has been cleared for d/c by PT and ortho PA Cris and had just left for home in company of family. Pt's and daughter were available for supportive care. Surgery: scheduled: L ASHLEY/posterior Surgeon: Dr. Gray. Payer: Count Includes [facility] and Medicare Followup with Dr. Gray was planned. CM Discharge Assessment Start: 09/28/20 11:14 Freq: Status: Active Protocol: Document 09/28/20 11:15 ITV (Rec: 09/28/20 11:15 ITV [id number]) Discharge Planning Assessment Advance Directives? No History Provided By Patient Prior Living Arrangements House Household Members spouse Is patient alert and oriented? Yes Discharge Plan Home Pre-Anesthesia Assessment Start: 09/20/20 13:54 Freq: Status: Discharge Protocol: Document 09/20/20 13:54 CAB (Rec: 09/20/20 14:48 CAB [id number]) Pre-Anesthesia Assessment Preferred Name Diane Patient Information Reviewed Via Phone Assessment Assessment Completed With Patient Diagnostic Results BMP/CMP,CBC,EKG,Urinalysis Comment Labs/EKG @ [facility], COVID screen @ [facility] 09/25/20 Primary Care Provider Cierra Dalton Seen Specialist in Last 12 Months Yes Specialist Seen Orthopedist Primary Language Albanian Income Tax Preparer Required No Height 165.1 cm Weight 85.275 kg Body Mass Index (BMI) 31.2 Hearing Ability Normal Visual Assist Glasses Dentition Type Partial- Upper Barriers to Learning None,Memory Hx Anesthesia Reactions No Hx Family Anesthesia Reaction No Hx Malignant Hyperthermia No Hx Blood Transfusions No Anesthesia Review Requested No alcohol intake former Smoking Status Current every day smoker Tobacco type cigarettes Smoking cigarettes per day 5 Substance Use Type does not use Pain Present Pain Reported Musculoskeletal Symptoms Abnormal Gait,Back Pain, Difficulty Walking,Joint Pain, Neck Pain History of Falling (Recent or History of Yes ) Patient is completely paralyzed or No completely immobile Prosthesis or Orthotic Device Cane Mental Status Oriented to own ability Is patient on oxygen? No Does patient have NYE/SOB Yes: r/t COPD asthma, smoking Hx Sleep Apnea No Currently Taking a Beta Carli No Can You Climb a Flight of Stairs Without No SOB Hx Chest Pain No Hx SOB Yes: r/t COPD asthma, smoking Hx Syncope or Dizziness No Anti-Coagulant Therapy No Has a Fishery Biologist No Cardiac Testing No Hx Pacemaker/ICD No Pacemaker Rep Required? No Cardiac Clearance Received Not Applicable Diet Type At Home Regular dysphagia No Gastrointestinal Symptoms Diarrhea,Reflux Urinary Catheter Present No Hx Urinary Self Catheterization No Diabetes No Patient No Lactating No Hx Drug Resistant Organism No Presence of External or Internal Medical Yes: Chin, upper jaw Devices Have you had any close contact with No someone diagnosed with COVID-19? Marital Status Lives With spouse Prior Living Arrangements House Number of Floors (Floors) Two Floors Support System Child/Children,Spouse Does the Patient Have Assistance After Yes Surgery Patient Discharge Plan Description Return Home Comment Pt advised 1 day length of stay per surgeon Feels Safe in Current Environment Yes Been Physically Hurt or Threatened By a No Person in Current Environment Do you have thoughts of harming yourself None,Vague or others? Are you currently considering suicide? No: Previous suicide thoughts, admitted to [facility] 24 years ago Do you have a plan to hurt yourself or No Plan others? Do You Have Any Spiritual Beliefs That No May Affect Your HC Choices? Do You Have Any Cultural Practices That No May Affect Your HC Choices? Who Can We Speak to About Patient's Care Family, friends Identifying Code for Release of Patient Declines to issue Information Health Care Proxy/Next of Kin Bahskar Liang () Tg (daughter) Health Care Proxy Phone Number Garth: [phone] Tg: [phone] Emergency Contact Name Bhaskar Liang () Tg (daughter) Emergency Contact Phone Number Garth: [phone] Tg: [phone] Advance Directives? Yes: Pt has paperwork, not completed Power of Fire Inspector No PAC Instructions Do not shave/clip surgical site,Durable medical equipment ,Medications to take/avoid, Nasal antibiotic,No ETOH/ petroleum product on skin DOS, NPO,Sensory aids,Sturdy shoes/ comfortable clothes,Do not bring valuables and remove jewelry
== END 2020-09-28 11:11 | disposition home or self-care (01) ==
LOC: OR 07:29 → AC 10:38
PROVIDERS: Family Provider Internal Medicine; PCP Internal Medicine; Referring Provider Internal Medicine; Visit Provider Orthopaedic Surgery
PROC: 0SRB0JZ Replacement of Left Hip Joint with Synthetic Substitute, Open Approach (ICD-10-PCS; CPT 27130; principal; 2020-09-27 08:45)
DX: M16.12 Unilateral primary osteoarthritis, left hip (principal); F17.210 Nicotine dependence, cigarettes, uncomplicated; J44.9 Chronic obstructive pulmonary disease, unspecified; F41.9 Anxiety disorder, unspecified; F43.10 Post-traumatic stress disorder, unspecified; M79.7 Fibromyalgia; G25.81 Restless legs syndrome; G62.9 Polyneuropathy, unspecified
CPT/HCPCS: 27130; 36415; 72170; 85014; 85018; 94640; 94760; 94762; 97110; 97116; 97161; 97530; C1776; A9270; J0690; J1100; J1885; J2250; J2270; J2274; J2405; J2704; J7613